=== PATIENT | female | born 1985 | race Caucasian/White ===

== ENCOUNTER 2018-02-22 09:06 | Outpatient (CLI) | payer OTHER, SELFPAY ==
[2018-02-22 11:01] LABS: TSH (W/Ref FT4) 1.45 uIU/mL (0.358-3.74)
== END 2018-02-22 09:26 ==
PROVIDERS: PCP Family Medicine; Visit Provider Nurse Practitioner Family
DX: N92.6 Irregular menstruation, unspecified (principal)
CPT/HCPCS: 36415; 84443

== ENCOUNTER 2020-03-17 10:17 | Outpatient (REF) | payer BC, SELFPAY ==
--- NOTE | 2020-03-17 09:05 | PAPFT_PTH ---
PATIENT: Zakia Ramirez LOC: [facility] U#:[id number] AGE/SX: 34/F ROOM: RE03/17/[address]: Jennifer Medina NP : 1985 BED: DIS: 03/17/2020 SPEC #: [id number] RECD: 03/17/20 13:00 STATUS: CHIVO CANO #: [id number] MATTHEW: 03/17/20 09:[address]: Jennifer Medina NP DEPT: [facility] Cytology RECD BY: Angela Ocampo ENTERED: 03/17/20 13:00 SP TYPE: PAPFT OTHR DR: Mike Noble Tissues: 1 - CX/ENDOCX FOR PAP SMEARS Procedures: PAP THIN PREP/UVM Screening HPV DNA PROBE Comments: [id number]
== END 2020-03-17 10:37 ==
LOC: LBN 10:17
PROVIDERS: PCP Family Medicine; Visit Provider Nurse Practitioner Women's Health
DX: Z12.4 Encounter for screening for malignant neoplasm of cervix (principal); Z11.51 Encounter for screening for human papillomavirus (HPV)
CPT/HCPCS: 88142; 87624

== ENCOUNTER 2020-04-09 01:44 | Outpatient (CLI) | payer BC, SELFPAY ==
--- NOTE | 2020-04-09 | DI.US_ITS ---
EXAM: US BREAST LT COMPLETE CLINICAL HISTORY: BILATERAL BREAST PAIN. TECHNIQUE: Complete ultrasound of the left breast was performed including all 4 quadrants as well as the retroareolar region and left axilla. COMPARISON: Today's baseline diagnostic mammogram was reviewed. This 34-year-old patient is complai [place] of bilateral breast pain in the upper outer quadrants, more so on the opposite-right side. FINDINGS: There is no evidence of solid or significant cystic lesions in all 4 quadrants of the left breast nor in the retroareolar region. There is no significant adenopathy in the ipsilateral-left axilla. IMPRESSION: Negative complete left breast ultrasound. Please see separate right breast ultrasound report. Appropriate follow-up is as discussed on the rig breast report BI-RADS Category 3 - 3 month - Probably Benign Finding: Recommend follow-up right breast ultrasound i n 3 months Breast Density - Category C - Heterogeneously dense Breast density Category C or D implies that the patient has dense breast tissue. Dense breast tissue can make it harder to find cancer on a mammogram. Dense breast tissue is also associated with an incr eased risk of breast cancer. This information about the result of the mammogram report was provided to the patient to raise their awareness. Use this report when you speak with the patient about their risks for breast cancer, which includes their family history. At that time, you may recommend additional screening tests (Ultrasoun d or MRI) as these tests may add significant information. A negative radiographic report should not delay biopsy if a dominant or clinically suspicious mass is present. Up to ten percent of cancers are not identified on mammography. A negative report may reinforce clinical impression. Adenosis and dense breasts may obscure an underlying neoplasm. False positive reports average 6 to 10%. Patient will receive a letter notifying them of these results.
--- NOTE | 2020-04-09 07:30 | DI.US_ITS ---
EXAM: US BREAST RT COMPLETE CLINICAL HISTORY: R breast pain for 2 weeks,n64.4. TECHNIQUE: Complete ultrasound of the right breast was performed incluing all 4 quadrants, the retro areolar region, and the ipsilateral axilla. COMPARISON: Today's diagnostic bilateral mammogram was reviewed. This 34-year-old patient is sent b ecause of bilateral breast pain in the upper outer quadrants, more so on the right side. She does no t feel no obvious nodule. There is no immediate family history. FINDINGS: There is a solitary finding which is at the 9 o'clock position, approximately 6 7-7 centimeters from the nipple and corresponding to the finding on the mammogram. This is a wider than taller well-defin ed solid non lobulated nodule measuring approximately 5 x 4 millimeters. This probably hemorrhagic m icrocyst. No worrisome associated decreased through transmission. There are no other focal ultrasound findings in all 4 quadrants nor in the retroareolar region of the right breast. There are few benign-appearing lymph node in the ipsilateral right axilla. IMPRESSION: Solitary 5 x 4 millimeter nodule at the 9 o'clock position corresponding to the finding on the mammog turner. This is probably hemorrhagic microcyst. Appropriate follow-up is repeat right breast ULTRASOUND in 3 months to ensure stability of this right breast finding Findings are recommendations were discussed by myself with the patient today. BI-RADS Category 3 - 3 month - Probably Benign Finding: Recommend follow-up right breast imaging in 3 months as described above. Breast Density - Category C - Heterogeneously dense Breast density Category C or D implies that the patient has dense breast tissue. Dense breast tissue can make it harder to find cancer on a mammogram. Dense breast tissue is also associated with an incr eased risk of breast cancer. This information about the result of the mammogram report was provided to the patient to raise their awareness. Use this report when you speak with the patient about their risks for breast cancer, which includes their family history. At that time, you may recommend additional screening tests (Ultrasoun d or MRI) as these tests may add significant information. A negative radiographic report should not delay biopsy if a dominant or clinically suspicious mass is present. Up to ten percent of cancers are not identified on mammography. A negative report may reinforce clinical impression. Adenosis and dense breasts may obscure an underlying neoplasm. False positive reports average 6 to 10%. Patient will receive a letter notifying them of these results.
--- NOTE | 2020-04-09 07:30 | DI.MAMMO_ITS ---
EXAM: MG MAMMO DIAGNOSTIC BI CLINICAL HISTORY: R breast pain,n64.6. TECHNIQUE: Unilateral spot mammographic images were obtained with [employer] and util izing computer aided detection (CAD). COMPARISON: Baseline diagnostic mammogram. Apparently this 34-year-old patient is feeling pain in b oth upper outer quadrants, slightly more so on the right side. FINDINGS: Fibroglandular tissue is moderately dense. There are no obvious radiographic findings in the left breast. In the right breast there is a well-defined oval noncalcified nodule towards the upper outer quadrant located approximately 7 centimetres in from the nipple and measuring approximately 4 x 3 millimeters . This was shown to be a probable hemorrhagic microcyst on breast ultrasound performed today followi ng this mammogram. Ultrasound examination revealed no other findings in either breast (see separate report). There are no malignant-appearing microcalcifications in either breast and no significant architectura l distortion or skin thickening-traction. IMPRESSION: No radiographic evidence of malignancy in left breast Oval noncalcified well-defined benign-appearing nodule in the upper-outer quadrant of the right breas t measuring 4 x 3 millimeters and shown to be a probable hemorrhagic microcyst on ultrasound examinat ion performed today. Appropriate follow-up, as discussed by myself with the patient today, is repeat right breast in ULTRASOUND in 3 months time. BI-RADS Category 3 - 3 month - Probably Benign Finding: Recommend follow-up ultrasound in 3 months Breast Density - Category C - Heterogeneously dense Breast density Category C or D implies that the patient has dense breast tissue. Dense breast tissue can make it harder to find cancer on a mammogram. Dense breast tissue is also associated with an incr eased risk of breast cancer. This information about the result of the mammogram report was provided to the patient to raise their awareness. Use this report when you speak with the patient about their risks for breast cancer, which includes their family history. At that time, you may recommend additional screening tests (Ultrasoun d or MRI) as these tests may add significant information. A negative radiographic report should not delay biopsy if a dominant or clinically suspicious mass is present. Up to ten percent of cancers are not identified on mammography. A negative report may reinforce clinical impression. Adenosis and dense breasts may obscure an underlying neoplasm. False positive reports average 6 to 10%. Patient will receive a letter notifying them of these results.
== END 2020-04-09 02:04 ==
PROVIDERS: PCP Nurse Practitioner Family; Visit Provider Nurse Practitioner Women's Health
DX: N64.4 Mastodynia (principal); N63.11 Unspecified lump in the right breast, upper outer quadrant
CPT/HCPCS: 76642; 77062; 77066; G0279

== ENCOUNTER 2021-12-25 16:05 | Emergency (ER) | payer BC, SELFPAY ==
[2021-12-25 16:12] VITALS: BP 130/83; PULSE 114; RESP 17; TEMP 37.1; O2SAT 98
--- NOTE | 2021-12-25 16:31 | W.ED.GENAD ---
Discharge Plan Disposition Patient Disposition: HOME Condition: Stable Discharge Details Clinical Impression: Acute streptococcal pharyngitis Primary Care Provider: Alethea Penaloza ED Provider: Stan Murphy Home Meds and New Rx's Prescriptions: New amoxicillin-pot clavulanate 875-125 mg tablet 1 tab PO BID 7 Days Qty: 14 0RF Discharge Instructions Instructions: Strep Throat (ED) Additional Instructions: Please follow-up with your primary care physician. Please return to the emergency department for any worsening symptoms. Medical Decision Making 36-year-old female no past medical history presents with 1 to 2 days of sore throat, tolerating secretions normoxic no respiratory distress, tachycardic on arrival, punctate enanthem on oropharynx with surrounding erythema, midline uvula, normal voice no distress at this time. Concern for viral versus bacterial pharyngitis. No evidence of deep space infection of head or neck. Positive strep swab. Will start on Augmentin. Given home care instructions and return precautions. HPI General Date/Time Provider Initiated Documentation: 12/25/21 16:07. HPI Narrative: 36-year-old female no past medical history presents with sore throat over the last 1 to 2 days, pain with swallowing, no other systemic symptoms. Related Data Home Medications Medication Instructions Recorded Confirmed amoxicillin 875 mg-potassium 1 tab PO BID 7 days #14 tabs 12/25/21 clavulanate 125 mg tablet Previous Rx's Medication Instructions Recorded amoxicillin 875 mg-potassium 1 tab PO BID 7 days #14 tabs 12/25/21 clavulanate 125 mg tablet Allergies Allergy/AdvReac Type Severity Reaction Status Date / Time No Known Allergies Allergy Verified 12/25/21 16:15 General Stated Complaint: Sorethroat MEE: 4 Review of Systems Narrative: Review of Systems Constitutional: negative Eyes: negative ENT: Sore throat Cardiovascular: negative Respiratory: negative Gastrointestinal: negative : negative Musculoskeletal: negative Skin: negative Neurologic: negative Psych: negative PFSH All Active Problems (Updated 12/25/21 @ 16:41 by Stan Murphy MD) Acute streptococcal pharyngitis (Acute) Anxiety (Acute 05/16/17) Surgical History (Updated 12/27/17 @ 14:36 by [employer] MA) section X 2 Family History Father Hyperlipidemia Grandmother Breast cancer Mat Gr aunt & MGGM Social History (Updated 02/22/18 @ 08:32 by Joann Dickens LPN) Smoking/Tobacco Use Status: Former Tobacco Use Smoking risk assessment performed?: Yes Alcohol Intake: current Alcohol Intake frequency: a few times a month Drug use: Never Substance use type: does not use Do you feel safe at home: Yes Do you feel safe in your relationship?: Yes Female Reproductive History Menstrual control method: other (partner with vasectomy) History History 2 Para 2 Hx # Term Pregnancies Multiple births Hx # Pregnancies Ectopic pregnancies AB induced Hx Number of Living Children AB spontaneous Exam Narrative Exam Narrative: Physical Examination General: alert, awake, cooperative, resting comfortably, no acute distress HEENT: normocephalic, atraumatic; PERRL, EOM intact, conjunctiva normal; no nasal discharge; erythema to posterior oropharynx with punctate enanthem, midline uvula, tolerating secretions, normal voice no submandibular or submental induration or erythema Neck: supple, trachea midline; full ROM Chest: normal to inspection Respiratory: normal respiratory effort, speaking in full sentences, clear to auscultation, no wheezing, rales or rhonchi Cardiac: Tachycardia, regular rhythm, S1S2 intact, no murmurs rubs or gallops GI: abdomen soft, non-tender, non-distended; no palpable mass or hepatosplenomegaly Skin: no lesions, rashes or trauma appreciated Neuro: AAOx3, normal speech, moving all extremities Psych: Appropriate mood and affect Course Vital Signs Vital signs: Vital Signs Temperature 37.1 C 12/25/21 16:12 Pulse 114 H 12/25/21 16:12 Respiratory Rate 17 12/25/21 16:12 Blood Pressure 130/83 12/25/21 16:12 Pulse Oximetry 98 12/25/21 16:12 Temperature 37.1 C 12/25/21 16:12 Temperature Source Tympanic 12/25/21 16:12 Pulse 114 H 12/25/21 16:12 Respiratory Rate 17 12/25/21 16:12 Respiratory Effort Non-Labored 12/25/21 16:13 Blood Pressure 130/83 12/25/21 16:12 Blood Pressure Position Sitting 12/25/21 16:12 Pulse Oximetry 98 12/25/21 16:12 Oxygen Delivery Method Room Air 12/25/21 16:12 Oxygen Flow Rate 0 12/25/21 16:12 Pain Level 8 12/25/21 16:12 Lab/Test Results Lab/Test Results: POC Strep Test-JOSE(Rapid) Start: 12/25/21 16:27 Freq: .Rapid Strep Test Status: Active Protocol: Document 12/25/21 16:27 RM (Rec: 12/25/21 16:27 RM [id number]) Strep test-JOSE(Rapid)-POC POC-Strep test-JOSE (Rapid) Positive POC-Strep test-JOSE (Rapid) Positive PAWSS Have you Been Recently Intoxicated or Drunk Within the Last 30 days?: No Have you Ever Experienced Previous Episodes of Alcohol Withdrawal?: No Have you ever Experienced Withdrawal Seizures?: No Have you ever Experienced Delirium Tremens(DT)s?: No Have you ever undergone Alcohol Rehabilitation Treatment (i.e, inpt ot outpatient treatment programs)?: No Have you ever Experienced Blackouts?: No Have you ever Combined Alcohol with other Downers within the last 90 days?: No Have you ever Combined Alcohol with any other Substance of Abuse during the last 90 days?: No Result: 0
[2021-12-25] MEDS: Dexamethasone 10 MG/ML VIAL IVP (16:50)
[2021-12-25] MEDS: Ketorolac 15 MG/ML VIAL IM (16:50)
[2021-12-25] MEDS: Lidocaine 2% Viscous 15 ML CUP PO (16:50)
[2021-12-25] MEDS: Amoxicillin 875/Clav. 125 TAB PO (16:50)
== END 2021-12-25 16:55 | disposition home or self-care (01) ==
PROVIDERS: Emergency Provider Emergency Medicine; PCP Nurse Practitioner Family
DX: J02.0 Streptococcal pharyngitis (principal); R00.0 Tachycardia, unspecified; Z87.891 Personal history of nicotine dependence
CPT/HCPCS: 87880; 96372; 96374; 99284; J1100; J1885

== ENCOUNTER 2022-08-16 10:16 | Outpatient (REF) | payer BC, SELFPAY ==
[2022-08-16 13:04] LABS: Abs Immature Grans 0.01 10^3/uL (0.0-0.06); Absolute Basophil Count 0.04 10^3/uL (0.0-0.2); Absolute Eosinophil Count 0.09 10^3/uL (0.0-0.7); Absolute Monocyte Count 0.54 10^3/uL (0.1-0.8); Absolute Neutrophil Count 4.42 10^3/uL (1.2-6.7); Basophils % 0.5; Eosinophils % 1.2; HCT 39.6 % (36.0-46.0); HGB 13.3 g/dL (11.2-15.7); Immature Grans % 0.1; Lymphocytes % 31.1; MCH 30.2 pg (27.0-33.0); MCHC 33.6 % (32.0-36.0); MCV 90 fL (80-95); Monocytes % 7.3; Neutrophils % 59.8; Platelet Count 219 10^3/uL (130-400); RDW 12.4 % (11.7-14.6); RDW-SD 41.4 fL
[2022-08-16 14:05] LABS: ALT 20 U/L (14-59); AST 14 U/L (15-37); Albumin 3.8 g/dL (3.4-5.0); Alkaline Phosphatase 82 U/L (46-116); Anion Gap 8.8 mmol/L (3-11); BUN 8 mg/dL (7-18); Bilirubin, Total 0.5 mg/dL (0.2-1.0); CO2 27.2 mmol/L (21.0-32.0); CREATININE 0.7 mg/dL (0.55-1.02); Calcium 8.8 mg/dL (8.5-10.1); Chloride 106 mmol/L (98-107); Estimated GFR 114.88 (mL/min/1.73m2); Glucose 89 mg/dL (74-106); Sodium 142 mmol/L (136-145)
[2022-08-16 15:36] LABS: Lipase 20 U/L (16-77)
== END 2022-08-16 10:17 | disposition home or self-care (01) ==
LOC: LBN 10:16
PROVIDERS: PCP Nurse Practitioner Family; Visit Provider Nurse Practitioner Family
DX: R10.32 Left lower quadrant pain (principal)
CPT/HCPCS: 80053; 83690; 85025

== ENCOUNTER 2022-08-17 11:50 | Observation (INO) | payer BC, SELFPAY ==
[2022-08-17] VITALS (7 sets, daily range): BP systolic 107–151; BP diastolic 73–93; PULSE 68–101; RESP 16–18; TEMP 36.6–36.7; O2SAT 95–100
--- NOTE | 2022-08-17 12:00 | DI.CT_ITS ---
Exam(s) CT ABDOMEN PELVIS W EXAM: CT ABDOMEN PELVIS W CLINICAL HISTORY: LLQ abdominal pain and mid abdominal pain TECHNIQUE: Imaging Protocol: Axial computed tomography images with coronal and sagittal reformatted images were created and reviewed CONTRAST MATERIAL: Intravenous: Omnipaque 350 Contrast volume:100 mL Oral: No COMPARISON: US US PELVIS TRANSVAGINAL from 08/17/2022 FINDINGS: ABDOMEN: Lung Bases: Normal where visualized. Liver: Normal density. No measurable mass. Portal, Superior Mesenteric, and Splenic Veins: Unremarkable. Gallbladder and Biliary Tract: No radiodense calculus or dilation. Pancreas: Normal density, no abnormal calcifications or inflammatory process. Spleen: Normal. Adrenals: No masses seen. Kidneys: Normal size, contour and axis. No radiodense stones or obstructive uropathy. No masses seen. Abdominal Aorta: Abdominal portion non-dilated. Bowel: In the left lower quadrant small bowel there is a linear density measuring approximately 1.3 c m in length traversing the wall of a loop of small bowel. (Series 7, images 38-42 and series 5, image s 27 through 31 and series 6, images 423 through 436). There is thickening of the wall of the small b owel in this region, in addition to increased attenuation of the fat in this area. There is no eviden ce of bowel obstruction. No other evidence of bowel wall thickening is seen. There is no free air. Peritoneal Cavity: No ascites, collection or mesenteric inflammatory response. No free air. Lymph Nodes: There are mildly prominent lymph nodes in the mesentery and mild haziness of the mesente ry. This is nonspecific but can be seen with the inflammatory process/panniculitis. Bones: Within normal limits for the patient's age. Soft Tissues: Unremarkable. PELVIS: Bladder: Symmetric distention, no gross wall thickening. Reproductive Organs: Unremarkable as visualized. Lymph Nodes: Within normal limits. Bones: Within normal limits for the patient's age. IMPRESSION: 1. 1.3 cm long linear density traversing the wall of a loop of small bowel in the left abdomen with a ssociated bowel wall thickening and increased attenuation in the surrounding fat. Concern for an trevon sted foreign body with bowel wall puncture. No free air or abscess. 2. Findings were discussed with Dr. Jacobo at 2:30 p.m. on 08/17/2022. RADIATION DOSE DELIVERED: 969.69mGy.cm Total DLP DATA REPOSITORY: All CT scans at this facility are submitted to the National Radiology Data Registry (NRDR) Dose Index Registry (DIR) with the [employer] ([employer]). RADIATION OPTIMIZATION: All CT scans at this facility use at least one of these dose optimization te chniques: automated exposure control; mA and/or kV adjustment per patient size (includes targeted exa ms where dose is matched to clinical indication); or iterative reconstruction.
--- NOTE | 2022-08-17 12:12 | W.ED.GENAD ---
Discharge Plan Discharge Details Chief Complaint: Abd Prob Clinical Impression: Bowel perforation, Foreign body in small intestine Primary Care Provider: Alethea Penaloza ED Provider: Jamie Jacobo Home Meds and New Rx's Prescriptions: No Action No Known Home Meds Medical Decision Making 36-year-old female with no significant past medical history who presents today for evaluation of abdominal pain. Patient states that for the last 3 to 4 days she has had left lower quadrant abdominal pain. It is sharp and achy in nature. It was coming and going but is now constant. It does still come and go in severity but not present. It does radiate to her mid and periumbilical abdominal region. She did go to urgent care yesterday and had a negative test, and unremarkable urinalysis, and outpatient labs including a CBC and a basic metabolic panel which were both negative. She was scheduled for a transvaginal ultrasound today which was negative for torsion, cyst, or other acute process. Outpatient abdominal ultrasound is scheduled in the next 48 hours. However patient's pain continues and is somewhat severe. She is nauseous but has no vomiting. She denies any diarrhea. She denies any vaginal discharge. No urinary complaints otherwise. No other complaints at this time. She has not taken any Tylenol or Motrin today. Pain is made worse when she walks, and she feels pain in her left lower quadrant whenever she takes a step. She denies any falls or trauma. No other complaints at this time. Physical exam demonstrates well-appearing female, notable left lower quadrant pain with radiation to the umbilical region, as well as radiation to the umbilical region on palpation of the right lower quadrant with mild rebound to the periumbilical region. Concern for mild peritoneal signs, potential diverticulitis, mesenteric adenitis, or enteritis. I discussed risks and benefits with the patient of CT imaging, and I do think that further imaging with CT scan is appropriate at this time. We will get a CAT scan, treat the patient's pain with Tylenol and Motrin/Toradol, monitor closely and reassess. 3:17 PM Laboratory work-up is relatively unremarkable, CT scan however shows concerning evidence for 1.3 cm long linear density traversing the wall of the loop of the small bowel in the left lower abdomen. There is certainly increased attenuation, fat stranding, and bowel wall thickening in that area. Concern for perforation secondary to a metallic object. Potentially a grill wire. Patient states that she has not eaten anything from the grill for quite some time. She denies any recent fish or bones that she has eaten or obviously any foreign metal objects. I did contact surgery and discussed the case with Dr. Hernandez. He recommends admission at this time. He will place admission orders including antibiotic orders. Patient still does not want anything for pain at this time. I have extensively reviewed the treatment plan with the patient. I have addressed all patient concerns at this time. I have also discussed the plan with the admitting physician and they agree with the current assessment and plan and have agreed to assume responsibility for the patient. All parties demonstrate verbal understanding and agreement with our assessment and plan at this time. The documentation in this chart was dictated using [employer] dictation software. Please excuse any dictation errors. FINDINGS: ABDOMEN: Lung Bases: Normal where visualized. Liver: Normal density. No measurable mass. Portal, Superior Mesenteric, and Splenic Veins: Unremarkable. Gallbladder and Biliary Tract: No radiodense calculus or dilation. Pancreas: Normal density, no abnormal calcifications or inflammatory process. Spleen: Normal. Adrenals: No masses seen. Kidneys: Normal size, contour and axis. No radiodense stones or obstructive uropathy. No masses seen. Abdominal Aorta: Abdominal portion non-dilated. Bowel: In the left lower quadrant small bowel there is a linear density measuring approximately 1.3 cm in length traversing the wall of a loop of small bowel. (Series 7, images 38-42 and series 5, images 27 through 31 and series 6, images 423 through 436). There is thickening of the wall of the small bowel in this region, in addition to increased attenuation of the fat in this area. There is no evidence of bowel obstruction. No other evidence of bowel wall thickening is seen. There is no free air. Peritoneal Cavity: No ascites, collection or mesenteric inflammatory response. No free air. Lymph Nodes: There are mildly prominent lymph nodes in the mesentery and mild haziness of the mesentery. This is nonspecific but can be seen with the inflammatory process/panniculitis. Bones: Within normal limits for the patient's age. Soft Tissues: Unremarkable. PELVIS: Bladder: Symmetric distention, no gross wall thickening. Reproductive Organs: Unremarkable as visualized. Lymph Nodes: Within normal limits. Bones: Within normal limits for the patient's age. IMPRESSION: 1. 1.3 cm long linear density traversing the wall of a loop of small bowel in the left abdomen with associated bowel wall thickening and increased attenuation in the surrounding fat. Concern for an ingested foreign body with bowel wall puncture. No free air or abscess. 2. Findings were discussed with Dr. Jacobo at 2:30 p.m. on 08/17/2022. HPI General Date/Time Provider Initiated Documentation: 08/17/22 11:51. HPI Narrative: 36-year-old female with no significant past medical history who presents today for evaluation of abdominal pain. Patient states that for the last 3 to 4 days she has had left lower quadrant abdominal pain. It is sharp and achy in nature. It was coming and going but is now constant. It does still come and go in severity but not present. It does radiate to her mid and periumbilical abdominal region. She did go to urgent care yesterday and had a negative test, and unremarkable urinalysis, and outpatient labs including a CBC and a basic metabolic panel which were both negative. She was scheduled for a transvaginal ultrasound today which was negative for torsion, cyst, or other acute process. Outpatient abdominal ultrasound is scheduled in the next 48 hours. However patient's pain continues and is somewhat severe. She is nauseous but has no vomiting. She denies any diarrhea. She denies any vaginal discharge. No urinary complaints otherwise. No other complaints at this time. She has not taken any Tylenol or Motrin today. Pain is made worse when she walks, and she feels pain in her left lower quadrant whenever she takes a step. She denies any falls or trauma. No other complaints at this time. Related Data Home Medications Medication Instructions Recorded Confirmed Unknown [No Known Home Meds] 08/10/22 08/17/22 Allergies Allergy/AdvReac Type Severity Reaction Status Date / Time No Known Allergies Allergy Verified 08/17/22 11:58 General Stated Complaint: Abd Prob MEE: 3 Review of Systems All systems reviewed & are unremarkable except as noted in HPI and below PFSH All Active Problems (Updated 08/17/22 @ 15:19 by Jamie Jacobo DO) Bowel perforation (Acute) Foreign body in small intestine (Acute) Irregular menstrual cycle (Acute) Anxiety (Acute 05/16/17) Surgical History section X 2 Family History Father Hyperlipidemia Grandmother Breast cancer Mat Gr aunt & MGGM Social History Smoking/Tobacco Use Status: Former Tobacco Use Smoking risk assessment performed?: Yes Alcohol Intake: current Alcohol Intake frequency: a few times a month Drug use: Never Substance use type: does not use Household members: family current occupation: blood donor unit assistant Sexually active: Yes Do you think of yourself as: straight/heterosexual Current gender identity: female Do you feel safe at home: Yes Do you feel safe in your relationship?: Yes Female Reproductive History Menstrual control method: other (partner with vasectomy) History History 2 Para 2 Hx # Term Pregnancies Multiple births Hx # Pregnancies Ectopic pregnancies AB induced Hx Number of Living Children AB spontaneous Exam Narrative Exam Narrative: 1.Const: Well-nourished, Well-developed, appearing stated age 2.Eyes: PERRL, no conjunctival injection, and symmetrical lids. 3.ENT: Atraumatic external nose and ears. Moist MM. Neck: Symmetric, trachea midline, No thyromegaly. 4.CVS: +S1/S2, No murmurs or gallops. Peripheral pulses 2+ and equal in all extremities. Brisk capillary refill in all extremities. 5.RESP: Unlabored respiratory effort. Clear to auscultation bilaterally. No wheezes rales or rhonchi 6.GI: Soft, nondistended, tenderness in the left lower quadrant, rebound transitions from the left lower quadrant to the periumbilical region. Palpation of the right lower quadrant elicits pain in the periumbilical region but nothing in the right lower quadrant. Negative White sign. Negative obturator and psoas sign. No CVA tenderness. 7.MSK: Normocephalic/Atraumatic, Extremities w/o deformity or ttp No cyanosis or clubbing, Normal movement of all extremities 8.Skin: Warm, Dry. No rashes or lesions. 9.Neuro: senior policy analyst II-XII grossly intact. Sensation grossly intact, no focal neurologic deficits. 10.Psych: (AAO) x3. Appropriate mood and affect Course Vital Signs Vital signs: Vital Signs Temperature 36.7 C 08/17/22 11:51 Pulse 101 H 08/17/22 11:51 Respiratory Rate 16 08/17/22 11:51 Blood Pressure 151/93 H 08/17/22 11:51 Pulse Oximetry 99 08/17/22 11:51 Temperature 36.7 C 08/17/22 11:51 Temperature Source Temporal Artery Scan 08/17/22 11:51 Pulse 101 H 08/17/22 11:51 Respiratory Rate 16 08/17/22 11:51 Respiratory Effort Normal 08/17/22 11:56 Blood Pressure 151/93 H 08/17/22 11:51 Blood Pressure Position Sitting 08/17/22 11:51 Pulse Oximetry 99 08/17/22 11:51 Oxygen Delivery Method Room Air 08/17/22 11:51 Oxygen Flow Rate 0 08/17/22 11:51 Pain Level 10 08/17/22 11:51
--- NOTE | 2022-08-17 12:21 | NUR.NOTE ---
Nursing Note: pt wants to hold off on tordol and tylenol for now, will let me know if she wants it later.
[2022-08-17] MEDS: Normal Saline - Diluent 50 ML VIAL IJ (13:52)
[2022-08-17] MEDS: Omnipaque 350 MG/ML 100 ML BTL IJ (13:53)
[2022-08-17] MEDS: Normal Saline Flush 10 ML SYR IVP (13:56)
[2022-08-17 14:50] LABS: Lactate 0.6 mmol/L (0.6-1.4)
[2022-08-17 14:53] LABS: Abs Immature Grans 0.02 10^3/uL (0.0-0.06); Absolute Basophil Count 0.03 10^3/uL (0.0-0.2); Absolute Eosinophil Count 0.09 10^3/uL (0.0-0.7); Absolute Lymphocyte Count 2.63 10^3/uL (1.2-3.4); Absolute Monocyte Count 0.65 10^3/uL (0.1-0.8); Basophils % 0.3; Eosinophils % 0.9; HCT 39.5 % (36.0-46.0); HGB 12.9 g/dL (11.2-15.7); Immature Grans % 0.2; Lymphocytes % 25.2; MCH 29.3 pg (27.0-33.0); MCHC 32.7 % (32.0-36.0); MCV 90 fL (80-95); MPV 10.2 fL (8.0-11.0); Monocytes % 6.2; Neutrophils % 67.2; Platelet Count 207 10^3/uL (130-400); RBC 4.41 10^6/uL (3.93-5.22); RDW 12.4 % (11.7-14.6); WBC 10.42 10^3/uL (4.4-10.8)
--- NOTE | 2022-08-17 15:07 | W.SURGCON ---
Date of service: 08/17/22 Time of Service: 15:19 Assessment and Plan Assessment and plan (1) Foreign body in small intestine: Status: Acute Assessment and plan: 36-year-old woman who has a foreign body in her small intestine wall. I do not think her symptoms are from the foreign body itself but rather the nearby inflammatory response secondary to its presence. Radiographically it does look like it has perforated and this is probably what started the inflammatory process that is ongoing. She is hemodynamically stable and has a benign abdominal exam. There is no peritonitis. Despite the perforation there is no evidence of free air and no free fluid of significance. Her lab work is completely normal. I had a discussion with the patient about my presumed cause of her symptoms and what the object probably is. I recommend laparoscopic exploration with a very likely small bowel resection of this affected piece. I do not recommend removing it from the wall and attempting to repair the wall afterwards renders risk for leak, fistula among other potential problems. I think this foreign body has been there for quite some time. The safest surgery in my opinion, is resection of that segment with a primary anastomosis. Patient wants to discuss all of this with her who is [place] of [place] right now. I did reassure her that based off of the timeline, the appearance on CT scan and her clinical presentation, there is no emergency intervention necessary. I do not think it is safe for her to go home, but she certainly can wait until tomorrow to have the operation. Overall plan: #Admit observation #IV antibiotics #Serial abdominal exams ? if the patient starts to become sick or develops peritonitis, we will explore her emergently (this is not expected) # Laparoscopic exploration, small bowel resection in the AM # DVT prophylaxis History of Present Illness Narrative: The patient is a 36-year-old woman who started having abdominal discomfort and cramping left?sided pain about 2 or 3 days ago. She is not having any issues going to the bathroom. She is not having fevers. Her symptoms are just discomfort. She has never had symptoms like this before. She recently had an ultrasound which showed no unusual findings. Because of persistent symptoms she came to the emergency department where a CT scan was done and showed a sharp?appearing foreign body in the small intestine and radiographic suggestion of a perforation. There is no free air or free fluid but the surrounding tissue appears radiographically inflamed. Considering the object shape and radiographic appearance, the concern is for a possible piece of sharp steel, likely from a barbecue brush. Patient does admit that in the last month she has definitely eaten some barbecue food. Surgical history is significant for C-sections. PFSH All Active Problems (Updated 08/17/22 @ 15:19 by Jamie Jacobo DO) Bowel perforation (Acute) Foreign body in small intestine (Acute) Irregular menstrual cycle (Acute) Anxiety (Acute 05/16/17) Surgical History section X 2 Family History Father Hyperlipidemia Grandmother Breast cancer Mat Gr aunt & MGGM Social History Smoking/Tobacco Use Status: Former Tobacco Use Smoking risk assessment performed?: Yes Alcohol Intake: current Alcohol Intake frequency: a few times a month Drug use: Never Substance use type: does not use Household members: family current occupation: photo studio assistant Sexually active: Yes Do you think of yourself as: straight/heterosexual Current gender identity: female Do you feel safe at home: Yes Do you feel safe in your relationship?: Yes Female Reproductive History Menstrual control method: other (partner with vasectomy) History History 2 Para 2 Hx # Term Pregnancies Multiple births Hx # Pregnancies Ectopic pregnancies AB induced Hx Number of Living Children AB spontaneous Exam Narrative Exam Narrative: General: Nontoxic, comfortable and interactive Neuro: Alert and oriented x3 Psych: Appropriate mood and affect, good insight and understanding into her condition Abdomen: Soft, nondistended, mild left?sided and epigastric tenderness but without any peritoneal signs. Results Last Vital Signs Temp 98.1 F 08/17/22 11:51 Pulse 101 H 08/17/22 11:51 Resp 16 08/17/22 11:51 BP 151/93 H 08/17/22 11:51 Pulse Ox 99 08/17/22 11:51 Labs 08/17/22 14:44 08/17/22 14:44 Labs: Laboratory Results - last 24 hr 08/17/22 08/17/22 14:44 14:44 WBC 10.42 RBC 4.41 Hgb 12.9 Hct 39.5 MCV 90 MCH 29.3 MCHC 32.7 RDW 12.4 Plt Count 207 MPV 10.2 Immature Gran % 0.2 Neutrophils % 67.2 Lymphocytes % 25.2 Monocytes % 6.2 Eosinophils % 0.9 Basophils % 0.3 Nucleated RBC % 0.0 Absolute Neutrophils 7.00 H Absolute Lymphocytes 2.63 Absolute Monocytes 0.65 Absolute Eosinophils 0.09 Absolute Basophils 0.03 VBG Lactate 0.6
[2022-08-17 15:12] LABS: ALT 20 U/L (14-59); AST 14 U/L (15-37); Albumin 3.6 g/dL (3.4-5.0); Alkaline Phosphatase 86 U/L (46-116); Anion Gap 6.4 mmol/L (3-11); BUN 5 mg/dL (7-18); Bilirubin, Total 0.3 mg/dL (0.2-1.0); CO2 26.6 mmol/L (21.0-32.0); CREATININE 0.7 mg/dL (0.55-1.02); Calcium 8.6 mg/dL (8.5-10.1); Chloride 104 mmol/L (98-107); Estimated GFR 114.88 (mL/min/1.73m2); Glucose 88 mg/dL (74-106); Potassium 3.8 mmol/L (3.5-5.1); Sodium 137 mmol/L (136-145); Total Protein 7.2 g/dL (6.4-8.2)
[2022-08-17] MEDS: Lactated Ringers 1,000 ML 100 ML IV (19:00)
[2022-08-17] MEDS: ACETAMINOPHEN 1,000 MG/100 ML BTL 400 MG IVPB (21:26)
[2022-08-17] MEDS: PIPERACILLIN/TAZO 3.375 GM in Normal Saline 50 ML IVPB (21:27)
[2022-08-17] MEDS: Ondansetron 4 MG/2 ML VIAL IVP (22:17)
[2022-08-18] VITALS (15 sets, daily range): BP systolic 85–123; BP diastolic 46–77; PULSE 51–87; RESP 14–26; TEMP 36.4–37.4; O2SAT 93–100; BMI 30.6
[2022-08-18] MEDS: PIPERACILLIN/TAZO 3.375 GM in Normal Saline 50 ML IVPB ×3 (04:56→16:55)
[2022-08-18 07:04] LABS: BUN 9 mg/dL (7-18); CREATININE 0.9 mg/dL (0.55-1.02); Calcium 8.6 mg/dL (8.5-10.1); Chloride 106 mmol/L (98-107); Estimated GFR 84.97 (mL/min/1.73m2); Glucose 90 mg/dL (74-106); Potassium 3.6 mmol/L (3.5-5.1); Sodium 141 mmol/L (136-145)
--- NOTE | 2022-08-18 08:11 | W.PM.PROGNOT ---
Date of Service Date of service: 08/18/22 Time of Service: 10:45 Assessment and Plan Assessment and plan (1) Foreign body in small intestine: Status: Acute Assessment and plan: 36-year-old woman with a foreign body in her small bowel that has caused a localized perforation with surrounding inflammation response. She is hemodynamically stable. I have recommended laparoscopic exploration with small bowel resection. She has been on antibiotics and DVT prophylaxis. Answered all of her questions and she is in agreement with the indications, the risks and the surgical plan. Subjective Subjective Interval history since last seen: No overnight events or clinical changes. Exam Narrative Exam Narrative: In general: Nontoxic, comfortable and interactive Neuro: Alert and oriented x3 Psych: Good mood and affect, good insight and understanding into her condition Abdomen: Soft, nondistended, mild tenderness without peritoneal signs. Objective Last Vital Signs Temp 98.2 F 08/18/22 07:24 Pulse 63 08/18/22 07:24 Resp 14 08/18/22 07:24 BP 112/73 08/18/22 07:24 Pulse Ox 98 08/18/22 07:24 Laboratory Results - last 24 hr 08/17/22 08/17/22 08/17/22 14:44 14:44 14:44 WBC 10.42 RBC 4.41 Hgb 12.9 Hct 39.5 MCV 90 MCH 29.3 MCHC 32.7 RDW 12.4 Plt Count 207 MPV 10.2 Immature Gran % 0.2 Neutrophils % 67.2 Lymphocytes % 25.2 Monocytes % 6.2 Eosinophils % 0.9 Basophils % 0.3 Nucleated RBC % 0.0 Absolute Neutrophils 7.00 H Absolute Lymphocytes 2.63 Absolute Monocytes 0.65 Absolute Eosinophils 0.09 Absolute Basophils 0.03 VBG Lactate 0.6 Sodium 137 Potassium 3.8 Chloride 104 Carbon Dioxide 26.6 Anion Gap 6.4 BUN 5 L Creatinine 0.7 Est GFR (CKD-EPI 2020) 114.88 Glucose 88 Calcium 8.6 Total Bilirubin 0.3 AST 14 L ALT 20 Alkaline Phosphatase 86 Total Protein 7.2 Albumin 3.6 Patient ABO/Rh Antibody Screen 08/17/22 08/18/22 14:44 06:16 WBC RBC Hgb Hct MCV MCH MCHC RDW Plt Count MPV Immature Gran % Neutrophils % Lymphocytes % Monocytes % Eosinophils % Basophils % Nucleated RBC % Absolute Neutrophils Absolute Lymphocytes Absolute Monocytes Absolute Eosinophils Absolute Basophils VBG Lactate Sodium 141 Potassium 3.6 Chloride 106 Carbon Dioxide 28.0 Anion Gap 7.0 BUN 9 Creatinine 0.9 Est GFR (CKD-EPI 2020) 84.97 Glucose 90 Calcium 8.6 Total Bilirubin AST ALT Alkaline Phosphatase Total Protein Albumin Patient ABO/Rh O Positive Antibody Screen NEGATIVE Time Spent with Patient Time Spent with Patient: <25 minutes Time was spent: indepentently interpreting results, counseling the patient and care coordination
--- NOTE | 2022-08-18 09:09 | ANES.PREOP_ITS ---
General Info Date of Service Date Performed: 08/18/22 Height: 5 ft 3 in Weight: 78.471 kg Body Mass Index (BMI): 30.6 Surgical Procedure: Operation Date: 08/18/22 11:10 Proposed Procedure Side Surgeon p Exploratory Laparoscopy Ezra Hernandez MD Meds Allergies and Home Medications Allergies Allergy/AdvReac Type Severity Reaction Status Date / Time No Known Allergies Allergy Verified 08/17/22 11:58 Home Medication Medication Instructions Recorded Unknown [No Known Home Meds] 08/10/22 Current Visit Medications: Current Medications Generic Name Dose Route Start Last Admin Trade Name Freq PRN Reason Stop Dose Admin Enoxaparin Sodium 40 mg 08/17/22 16:00 08/17/22 16:44 Enoxaparin 40 Mg/0.4 Ml Syr SC Not Given Q24H MARYAN Ringer's Solution 1,000 mls @ 100 mls/hr 08/17/22 15:45 08/17/22 19:00 IV 100 mls/hr INFUSION MARYAN Administration Piperacillin Sod/Tazobactam 50 mls @ 100 mls/hr 08/17/22 16:00 08/18/22 04:56 Sod 3.375 gm/ Sodium Chloride IVPB 100 mls/hr Q6H MARYAN Administration Acetaminophen 1,000 mg in 100 mls @ 400 mls/hr 08/17/22 16:00 08/18/22 05:02 Ofirmev IVPB Not Given Q6H MARYAN IV Miscellaneous Supplies 1 each 08/17/22 15:45 Iv Access IV DIRECTED MARYAN Ondansetron HCl 4 mg 08/17/22 21:35 08/17/22 22:17 Ondansetron 4 Mg/2 Ml Vial IVP 4 mg Q6H PRN PRN Administration Sodium Chloride 0 ml 08/17/22 13:56 08/17/22 13:56 Normal Saline Flush 10 Ml Syr IVP 10 ml PRN PRN Administration Sodium Chloride 0 ml 08/17/22 15:34 Normal Saline Flush 10 Ml Syr IVP PRN PRN PFSH Active Problems Active Problems: Problem Status Onset Code Bowel perforation K63.1 Foreign body in small intestine T18.3XXA Irregular menstrual cycle N92.6 Anxiety 05/16/17 F41.9 Surgical History Surgical History section X 2 Tobacco Smoking/Tobacco Use Status: Former Tobacco Use Alcohol Alcohol Intake: current Alcohol intake frequency: a few times a month Substance Use Substance use: Never Substance use type: does not use Prental History History 2 Para 2 Hx # Term Pregnancies Multiple births Hx # Pregnancies Ectopic pregnancies AB induced Hx Number of Living Children AB spontaneous Vital Signs and Lab Results Vital Signs Most Recent Vital Signs in EMR: Most Recent Vital Signs Temp Pulse Resp BP Pulse Ox 36.8 C 63 14 112/73 98 08/18/22 07:24 08/18/22 07:24 08/18/22 07:24 08/18/22 07:24 08/18/22 07:24 Point of Care Results Point of Care Results: POC- Test(urine) Negative 08/17/22 15:55 Lab Results 08/17/22 14:44 08/18/22 06:16 Blood Type / Crossmatch: Patient ABO/Rh O Positive 08/17/22 Antibody Screen NEGATIVE 08/17/22 Complete Blood Count: White Blood Count 10.42 10^3/uL (4.4-10.8) 08/17/22 14:44 Red Blood Count 4.41 10^6/uL (3.93-5.22) 08/17/22 14:44 Hemoglobin 12.9 g/dL (11.2-15.7) 08/17/22 14:44 Hematocrit 39.5 % (36.0-46.0) 08/17/22 14:44 Platelet Count 207 10^3/uL (130-400) 08/17/22 14:44 Venous Blood Lactate 0.6 mmol/L (0.6-1.4) 08/17/22 14:44 Complete Metabolic Panel: Sodium 141 mmol/L (136-145) 08/18/22 06:16 Potassium 3.6 mmol/L (3.5-5.1) 08/18/22 06:16 Chloride 106 mmol/L (98-107) 08/18/22 06:16 Carbon Dioxide 28.0 mmol/L (21.0-32.0) 08/18/22 06:16 BUN 9 mg/dL (7-18) 08/18/22 06:16 Creatinine 0.9 mg/dL (0.55-1.02) 08/18/22 06:16 Est GFR (CKD-EPI 2020) 84.97 (mL/min/1.73m2) 08/18/22 06:16 Calcium 8.6 mg/dL (8.5-10.1) 08/18/22 06:16 Albumin 3.6 g/dL (3.4-5.0) 08/17/22 14:44 Glucose 90 mg/dL (74-106) 08/18/22 06:16 Liver Function Panel: Alanine Aminotransferase (ALT/SGPT) 20 U/L (14-59) 08/17/22 14: 44 Aspartate Amino Transf (AST/SGOT) 14 U/L (15-37) L 08/17/22 14: 44 Coagulation Panel: No Data to Display Cardiac Panel: No Data to Display Arterial Blood Gas: No Data to Display Venous Blood Gas: No Data to Display Pancreas Panel: Lipase 20 U/L (16-77) 08/16/22 09:55 Thyroid Panel: No Data to Display Infectious Disease: No Data to Display Blood Cultures: No Data to Display Toxicology Panel: No Data to Display Panel: Urine HCG, Qualitative Negative 08/16/22 09:22 Anesthesia Assessment and Plan Anesthesia History Personal History: No History of Anesthesia Complications and No History of General Anesthesia Family History: No Family History of Anesthesia Complications Exercise Tolerance Exercise Tolerance: Metabolic Equivalents>4 Pertinent Negatives Pertinent Negatives: No Symptoms of GERD, No Major Cardiovascular Symptoms or Complaints, No Major Pulmonary Symptoms or Complaints and No History of CVA/TIA Cardiac & Pulmonary Exam Cardiac Exam: Normal S1/S2 Heart Sounds Pulmonary Exam: Clear Bilateral Breath Sounds Implantable Cardiac Device Does patient have a Pacemaker or an ICD?: No Airway Exam Known Difficult Airway: No Mallampati Class: 4 Mouth Opening: Normal (> 3cm) Thyromental Distance: Greater than 3 cm Neck Range of Motion: Full ROM Neck Circumference: Thick Teeth Condition: Normal Dentition ASA Classification ASA Score: ASA 2 Emergency Case?: Yes NPO Status NPO Status: NPO Clears >2 hours, Solids >8 hours Status Status: Negative HCG Anesthesia Plan Resuscitation Status: Full Code Anesthesia Technique: General Anesthesia Airway Planned: Endotracheal Tube Monitors Used: Standard Monitors
--- NOTE | 2022-08-18 10:21 | PDOC.CMIN ---
Date of service: 08/18/22 Time of Service: 10:22 Care Management Initial Assmt Initial Assessment REASON FOR HOSPITALIZATION:: abdominal pain PREVIOUS FUNCTIONAL STATUS/SOCIAL/FAMILY SUPPORTS:: Michelle lives in [facility] with her Vivek. They have 2 children, a daughter, Adan and a 12 year old son. 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 She is independent at baseline and does not receive [facility] community services. CURRENT FUNCTIONAL STATUS:: Michelle was in the OR today when CM came to see her. Her Dad and her daughter were present and were able to answer questions. An exploratory laparotomy was scheduled with a possible small bowel resection. Michelle suffered a small bowel perforation secondary to ingesting an unknown foreign object which penetrated her bowel wall. ADVANCE DIRECTIVES:: none on file Has patient been provided with info about the portal/API?: Yes Did the patient sign up for the portal?: Yes CODE STATUS:: Full Code CURRENT HOME/COMMUNITY SERVICES/EQUIPMENT:: none PRIMARY CARE PHYSICIAN:: Alethea Penaloza POTENTIAL DISCHARGE NEEDS:: follow up with surgery, PCP and plan of care PATIENT/FAMILY EDUCATION NEEDS:: Review of discharge instructions, limitations, activity, follow up plan, discuss Ask Me Three ANTICIPATED BARRIERS TO DISCHARGE:: none TRANSPORTATION:: via private vehicle with family PLAN:: Anticipate Michelle will be discharged home with no new services. She will follow up with her community providers and plan of care and transport with family. CM will follow and assess for discharge needs. PFSH All Active Problems (Updated 08/17/22 @ 15:19 by Jamie Jacobo DO) Bowel perforation (Acute) Foreign body in small intestine (Acute) Irregular menstrual cycle (Acute) Anxiety (Acute 05/16/17) Surgical History section X 2 Family History Father Hyperlipidemia Grandmother Breast cancer Mat Gr aunt & MGGM Social History Smoking/Tobacco Use Status: Former Tobacco Use Smoking risk assessment performed?: Yes Alcohol Intake: current Alcohol Intake frequency: a few times a month Drug use: Never Substance use type: does not use Household members: family current occupation: unit assistant Sexually active: Yes Do you think of yourself as: straight/heterosexual Current gender identity: female Do you feel safe at home: Yes Do you feel safe in your relationship?: Yes Female Reproductive History Menstrual control method: other (partner with vasectomy) History History 2 Para 2 Hx # Term Pregnancies Multiple births Hx # Pregnancies Ectopic pregnancies AB induced Hx Number of Living Children AB spontaneous
[2022-08-18] MEDS: Lactated Ringers 1,000 ML 50 ML IV (11:13)
--- NOTE | 2022-08-18 12:30 | OMENTUMBX_PTH ---
PATIENT: Zakia Ramirez LOC: [id number] AGE/SX: 36/F ROOM: RE08/17/[address]: Ezra Hernandez : 1985 BED: A DIS: 08/18/2022 SPEC #: [id number] RECD: 08/18/22 17:07 STATUS: CHIVO REShubham #: [id number] MATTHEW: 08/18/22 12:[address]: Ezra Hernandez DEPT: Surgical Specimen RECD BY: Angela Ocampo ENTERED: 08/18/22 17:11 SP TYPE: OMENTUMBX OTHR DR: Alethea Penaloza Tissues: 1 - OMENTAL/OMENTUM BIOPSY/RESECTION 2 - FOREIGN BODY Procedures: GROSS AND MICRO LEVEL 4 GROSS LEVEL 1 Comments: [id number]
[2022-08-18] MEDS: Droperidol 5 MG/2 ML VIAL 0.625 MG IVP (12:57)
[2022-08-18] MEDS: Bupivacaine 0.25% Pres-Free 30 ML VIAL (13:01)
[2022-08-18] MEDS: fentaNYL 100 MCG/2 ML VIAL IVP (13:09)
--- NOTE | 2022-08-18 13:30 | W.PM.OP ---
Date of service: 08/18/22 Time of Service: 13:00 Operative Note Operative Note Refer to Anesthesia Record Procedure Description: Procedures performed: 1. Diagnostic laparoscopy 2. Laparoscopic partial omentectomy 3. Foreign body removal Preoperative Diagnosis: Foreign body, small bowel perforation Postoperative Diagnosis: same Surgeon: Lavonne Hernandez Assist: Zayda Anesthesia: General Anesthesiologist: Radha Indication: Patient presented with abdominal pain. CT scan shows a foreign body stuck in the intestinal wall and perforating through it. Findings: In the mid?small bowel, a small piece of wire was found perforating. A piece of omentum was overlying this area and stuck densely to it. Partial omentectomy was performed making the piece attached to the small bowel. The small bowel was then extracorporealized and the foreign body (piece of barbecue brush wire) was removed. No intestinal damage, no leaking, no hole. Thus, no bowel resection was performed despite having planned to perform such. Complications: None Estimated Blood Loss: Scant Specimens removed: 1. Partial omentectomy 2. Foreign body? pieces of wire Grafts or implants: none Procedure in detail: Written consent was obtained from the patient who was in agreement with the risks, the benefits and the indications for the procedure. The patient was taken to the operating suite and laid supine on the operating table with arms pack. IV antibiotics had been administered and DVT prophylaxis had been given. Venodynes were in place. General anesthesia was administered which was tolerated very well. Next we tucked the patient's arms. We then prepped and draped the abdomen in sterile fashion. A timeout was performed. When we were all in agreement we began the procedure. Local anesthetic was injected. Just below the costal margin in the left upper quadrant, a small stab incision was made and a 5 mm Optiview trocar was used to enter into the abdomen under direct visualization. The liver was inspected and did not appear cirrhotic. No visible lesions. Another 5 mm port was placed under direct visualization The patient was placed in Trendelenburg and we had good visualization of the intra-abdominal contents. Readily and easily identifiable was an irritated loop of small bowel that was stuck to omentum. I did not want to manipulate the wire or potentially lose it and show I divided this piece of omentum with the LigaSure. This freed up the small bowel to move around since the attached piece of omentum was now completely free as well. Next, I made a Pfannenstiel incision in standard fashion. A wound protector was placed. The small bowel was extracorporealized here and the small piece of wire was grasped with a clamp and easily extracted. It came out freely and without any resistance. After I removed it, there was no visible or obvious hole. This is because the patient wire was so tiny in diameter - smaller than most of the needles we use(maybe 30-gauge). I milked the bowel and was unable to get any contents to leak. The piece of wire and the small piece of omentum were passed off the table for permanent pathology. I felt that any further intervention was unwarranted. Nothing was leaking from this minuscule puncture. Certainly a bowel resection would render a higher risk for leak and simply leaving this pinhole alone. Hemostasis was excellent. There was no tension. All 5 mm trochars were removed. The Pfannenstiel incision was closed in layers. We used Monocryl to close the skin. Dermabond glue was placed. The sponge, instrument and sharps count was correct x3 at the end of the procedure. The patient tolerated the procedure well and was taken to the PACU in hemodynamically stable condition.
--- NOTE | 2022-08-18 15:49 | W.ANESPOSTOP ---
Postoperative Evaluation Date, Time and Location Date Performed: 08/18/22 Time Performed: 15:49 Patient Location: Med/Surg Vital Signs Most Recent Imported Vital Signs: Most Recent Vital Signs Temp Pulse Resp BP Pulse Ox 37.4 C 68 16 101/68 96 08/18/22 15:10 08/18/22 15:10 08/18/22 15:10 08/18/22 15:10 08/18/22 15:10 Pain Score Most Recent Pain Score: Most Recent Pain Score Pain Level 0 08/18/22 15:10 Assessment Mental Status: Awake (Alert & Oriented to Patient Baseline) Airway and Respiratory Function: Patent airway with normal (patient baseline) respiratory exam Cardiovascular Function: Hemodynamically Stable Hydration Status: Adequately Hydrated Nausea & Vomiting: No Nausea or Vomiting Pain: Pt. Denies Any Pain Peripheral Nerve Block: Patient did not receive a nerve block
[2022-08-18] MEDS: Enoxaparin 40 MG/0.4 ML SYR SC (16:54)
[2022-08-18] MEDS: ACETAMINOPHEN 1,000 MG/100 ML BTL 400 MG IVPB (16:54)
--- NOTE | 2022-08-18 19:29 | W.PM.DS.N ---
Date of service: 08/18/22 Time of Service: 19:31 DS: Diagnosis Discharge Diagnosis (1) Foreign body in small intestine: Status: Acute Asessment and Plan: Doing well. Tolerating diet. No significant pain. Ready for discharge home. Discharge Plan Disposition Patient Disposition: Home Condition: Good Discharge Details Reason For Visit: Small Bowel Perforation Admit Date/Time: 08/17/22 15:34 Admit Provider: Ezra Hernandez Attending Provider: Ezra Hernandez [facility] Hospital Course: Patient presented with acute abdominal pain. Found to have foreign body in small intestinal wall. Taken to surgery for exploration and the foreign body was removed. Post-op she did well and was discharged home. Home Meds and New Rx's Prescriptions: New amoxicillin-pot clavulanate 875-125 mg tablet 1 tab PO BID Qty: 7 0RF Discharge Instructions Instructions: Perforated Bowel (DC) Additional Instructions: Okay to shower. Activity as tolerated. Tylenol for pain. Regular food as tolerated. Call MD for worsening symptoms. Stand Alone Forms: Nursing Discharge Form Referrals: Mei Sherwood MD [ [facility]YSICIAN] - (Please call Monday to set up an apointment with the surgical office ) Activity:: Activity as Tolerated Equipment/Supplies:: No Equipment Needed Diet:: As Tolerated Discharge Orders Discharge Orders: Discharge Order (Routine); Ordered 08/18/22 Ordered By: Ezra Hernandez DS: Summary Time Spent with Patient providing and/or coordinating discharge services: Less than 30 minutes Status at Discharge Functional status at discharge: independent ambulation Overall status at discharge: patient is back to baseline Mental Status: mental status grossly normal Speech and Movement: speech and movement normal Mood: congruent mood Affect: normal affect Exam Narrative Exam Narrative: Gen: Nontoxic and comfortable Neuro: AxO3 PSych: Good mood and affect Abdomen: Soft Psych Mental Status: mental status grossly normal Speech and Movement: speech and movement normal Mood: congruent mood Affect: normal affect DS: Data Vitals/I&O Vitals and I&O: Vital Signs Temperature 98.0 F 08/18/22 18:26 Temperature Source Axillary 08/18/22 18:26 Pulse 87 08/18/22 18:26 Pulse Rhythm Regular 08/18/22 15:15 Respiratory Rate 16 08/18/22 18:26 Respiratory Effort Normal, Non-Labored 08/18/22 15:15 Respiratory Depth Normal 08/18/22 15:15 Respiratory Pattern Normal 08/18/22 15:15 Blood Pressure 117/75 08/18/22 18:26 Blood Pressure Mean 84 08/17/22 15:30 Blood Pressure Position Sitting 08/17/22 11:51 Pulse Oximetry 97 08/18/22 18:26 Respiratory End-tidal CO2 42 08/18/22 13:38 Oxygen Delivery Method Room Air 08/18/22 18:26 Oxygen Flow Rate 0 08/18/22 18:26 Pain Level 0 08/18/22 18:26 Intake & Output 08/17/22 08/18/22 08/18/22 23:59 11:59 23:59 Intake Total 210 / 210 100 / 1250 1150 / 1250 Output Total 300 / 900 600 / 900 Balance 210 / 210 -200 / 350 550 / 350 Weight 173 lb Intake: IV 210 / 210 100 / 1250 1150 / 1250 Output: Urine 300 / 900 600 / 900 Other: Urine Color Yellow Yellow Urine Appearance Clear Clear Clear Urine Odor None None Emesis Description None Voiding Methods Toilet Toilet Data Completed and Pending Labs on day of discharge: Labs from last 24 hours 08/18/22 06:16 Sodium 141 Potassium 3.6 Chloride 106 Carbon Dioxide 28.0 Anion Gap 7.0 BUN 9 Creatinine 0.9 Est GFR (CKD-EPI 2020) 84.97 Glucose 90 Calcium 8.6 PFSH All Active Problems (Updated 08/17/22 @ 15:19 by Jamie Jacobo DO) Bowel perforation (Acute) Foreign body in small intestine (Acute) Irregular menstrual cycle (Acute) Anxiety (Acute 05/16/17) Surgical History section X 2 Family History Father Hyperlipidemia Grandmother Breast cancer Mat Gr aunt & MGGM Social History Smoking/Tobacco Use Status: Former Tobacco Use Smoking risk assessment performed?: Yes Alcohol Intake: current Alcohol Intake frequency: a few times a month Drug use: Never Substance use type: does not use Household members: family current occupation: trust administrative assistant Sexually active: Yes Do you think of yourself as: straight/heterosexual Current gender identity: female Do you feel safe at home: Yes Do you feel safe in your relationship?: Yes Female Reproductive History Menstrual control method: other (partner with vasectomy) History History 2 Para 2 Hx # Term Pregnancies Multiple births Hx # Pregnancies Ectopic pregnancies AB induced Hx Number of Living Children AB spontaneous Time Spent with Patient Time Spent with Patient: <45 minutes Time was spent: preparing to see the patient(eg.review tests), ordering medications,tests, procedures, counseling the patient and care coordination
== END 2022-08-18 20:17 | disposition home or self-care (01) ==
LOC: ER 15:48 → MS 16:29
PROVIDERS: Admitting Provider Student in an Organized Health Care Education/Training Program; Emergency Provider Student in an Organized Health Care Education/Training Program; PCP Nurse Practitioner Family; Visit Provider Student in an Organized Health Care Education/Training Program
PROC: 0DBU4ZZ Excision of Omentum, Percutaneous Endoscopic Approach (ICD-10-PCS; CPT 49320; principal; 2022-08-18 11:00)
DX: T18.3XXA Foreign body in small intestine, initial encounter (principal); N92.6 Irregular menstruation, unspecified; F41.9 Anxiety disorder, unspecified; Z87.891 Personal history of nicotine dependence
CPT/HCPCS: 49402; 36415; 80048; 80053; 86850; 86900; 86901; 88300; 88305; 96365; 96366; 96368; 96372; 96375; 99285; J1650; 74177; 83605; 85025; G0378; J0131; J1100; J1790; J2001; J2250; J2405; J2543; J2704; J3010; J3490

== ENCOUNTER 2023-07-12 15:55 | Outpatient (REF) | payer BC, SELFPAY ==
[2023-07-12 19:39] LABS: Hemoglobin A1C 5.5 % (<5.7)
[2023-07-12 19:40] LABS: ALT 23 U/L (14-59); AST 23 U/L (15-37); Albumin 3.8 g/dL (3.4-5.0); Alkaline Phosphatase 85 U/L (46-116); Anion Gap 9.1 mmol/L (3-11); BUN 11 mg/dL (7-18); Bilirubin, Total 0.1 mg/dL (0.2-1.0); CO2 25.9 mmol/L (21.0-32.0); CREATININE 0.7 mg/dL (0.55-1.02); Calcium 8.9 mg/dL (8.5-10.1); Chloride 107 mmol/L (98-107); Estimated GFR 114.16 (mL/min/1.73m2); Glucose 100 mg/dL (74-106); Potassium 4.1 mmol/L (3.5-5.1); Sodium 142 mmol/L (136-145); TSH (W/Ref FT4) 1.79 uIU/mL (0.36-3.74); Total Protein 7.1 g/dL (6.4-8.2)
== END 2023-07-12 15:56 | disposition home or self-care (01) ==
LOC: NCHCN 15:55
PROVIDERS: PCP Family Medicine; Visit Provider Nurse Practitioner Family
DX: F41.8 Other specified anxiety disorders (principal)
CPT/HCPCS: 80053; 83036; 84443

== ENCOUNTER 2024-09-18 09:08 | Outpatient (CLI) | payer BC, SELFPAY ==
[2024-09-18 10:26] LABS: TSH (W/Ref FT4) 1.67 uIU/mL (0.36-3.74)
== END 2024-09-18 09:09 | disposition home or self-care (01) ==
LOC: LBO 09:08
PROVIDERS: PCP Family Medicine; Visit Provider Nurse Practitioner Women's Health
DX: N92.3 Ovulation bleeding (principal); N92.6 Irregular menstruation, unspecified
CPT/HCPCS: 36415; 84443